=== PATIENT | male | born 1960 | race Caucasian/White ===

== ENCOUNTER → 2016-07-10 | Outpatient (CLI) | payer OTHER ==
[~2016-07-10] MED LIST: FLUT0.15 NAE; GABA-112 PO; GABA-113 PO; LISI-461 PO; MTR600X; MULT-506 PO; SIMV-151 PO
--- NOTE | 2016-07-10 16:06 | DIAGNOSTIC IMAGING REPORT ---
MRI LUMBAR SPINE W/O CONTRAST CLINICAL HISTORY: Low back pain with left leg radiculopathy. TECHNIQUE: Sagittal and axial T1, T2 and STIR images were obtained. COMPARISON STUDY: No previous studies for comparison. OBSERVATIONS: The vertebral bodies and posterior elements appear intact. There is no abnormal bony signal present to suggest a marrow replacement process. L1-2: No disc protrusions or extrusions. No evidence of spinal canal or neural foraminal compromise. L2-3: There is a minor circumferential disc bulge. There is no significant spinal or foraminal stenosis. L3-4: There is a minor circumferential disc bulge. There is no significant spinal or foraminal stenosis. L4-5: There is a small to moderate right paracentral disc protrusion. This deforms the right anterior aspect of the thecal sac. There is no significant foraminal stenosis. L5-S1: There is a small left paracentral disc protrusion. There is only minimal thecal sac deformity. There is no significant foraminal narrowing. The conus medullaris and cauda equina appear normal. IMPRESSION: 1. Smaller moderate right paracentral disc protrusion at the L4-5 level. 2. Small left paracentral disc protrusion at the L5-S1 level. Electronically signed by: Johan Portillo M.D. 07/10/2016 4:05 PM Dictated Date/Time: 07/10/2016 4:01 PM
== END | disposition home or self-care (01) ==
LOC: C.MRIBC 15:25
PROVIDERS: ATTEND Anesthesiology
DX: M51.16 Intervertebral disc disorders with radiculopathy, lumbar region (principal)

== ENCOUNTER 2022-06-21 08:28 | Inpatient (IN) ==
[2022-06-21] MEDS ORDERED: ONDANSETRON INJ 2 MG/ML 2 ML VIAL IV STA (08:54)
[2022-06-21] MEDS ORDERED: DEXAMETHASONE SOD INJ 4 MG/ML VIAL IV STA (08:54)
--- NOTE | 2022-06-21 08:59 | Emergency Department Note ---
History of Present Illness General Chief complaint: Back Injury/Pain Stated complaint: LOW BACK PAIN Time Seen by Provider: 06/21/22 08:33 History of Present Illness Maximum Pain Intensity: 10 This 61-year-old male presents today with his , for evaluation of excruciating low back pain. Patient was seen here 2 weeks ago for identical symptoms. MRI at that time showed a herniated L3-L4 disc with severe impingement on the neural foramen. He was discharged at that time with outpati ent follow-up. He has seen Dr. Delgado for evaluation of his spine. He was actually seen in the office yesterday. Patient states the pain is excruciating. He came to the ED today for pain control as well as hoping for admission. He denies any loss of bowel or bladder control. He states he cannot get comfortable. The pain radiates from his back to his anterior thigh. Right thigh is so painful he has difficulty bearing weight on it. He denies any loss of motor function. There is difficulty getting comfortable. No recent trauma. Symptoms started a month ago when he was sitting in chair and reached to the right side. He felt a pop and symptoms have worsened from there. Home Medications Medication Instructions Recorded Confirmed Type fluticasone propionate 50 2 sprays intranasal DAILY 02/15/18 06/21/22 History mcg/actuation nasal spray,suspension (Flonase Allergy Relief) multivitamin 1 tab PO DAILY 02/15/18 06/21/22 History ascorbic acid (vitamin C) 1,000 mg 1 g PO DAILY 10/08/21 06/21/22 History tablet atorvastatin 40 mg tablet 40 mg PO DAILY 10/08/21 06/21/22 History oxycodone 5 mg tablet 5 mg PO Q4 PRN pain #25 tabs 06/05/22 06/21/22 Rx celecoxib 200 mg capsule 200 mg PO BID 06/21/22 06/21/22 History lisinopril 5 mg tablet 5 mg PO DAILY 06/21/22 06/21/22 History ropinirole 2 mg tablet 2 mg PRN restless legs 06/21/22 History Allergies Allergy/AdvReac Type Severity Reaction Status Date / Time Anesthetics - Amide Type - AdvReac Agitated Unverified 06/21/22 10:11 Select A duloxetine AdvReac Verified 06/21/22 10:11 gabapentin AdvReac Depression Verified 06/21/22 10:11 Past Med/Surg History Medical History Cervical spondylosis High cholesterol Hypertension Lumbar facet joint syndrome Lumbar radiculopathy Myofascial pain Umbilical hernia Surgical History History of cervical spinal surgery C3-[address] Leal Family History Mother Stroke Hypertension Social History Smoking Status: Former smoker Tobacco Type: Cigarettes Hx Alcohol Use: Yes Alcohol type: beer Hx Substance Use: No Preferred Language: Kazakh Communication Ability: Effective Supervisor Harvesting Required: No Beliefs That Will Affect Care: None marital status: Current Living Situation: Spouse current occupational status: unemployed Other Information That Helps Us Care for You: No Feels Safe at Home: No Is there a partner from a previous relationship who is making you feel unsafe now?: No Any Concerns about Your Family Situation: No Would You Like to Speak to Someone About Your Situation: No Safety Concerns: Feels Safe At This Time Review of Systems A total of 10 systems reviewed and were otherwise negative Physical Exam Vital Signs Vital Signs - 24 hr 06/21/22 08:28 06/21/22 09:10 06/21/22 10:00 Temperature 36.6 C Temperature Source Temporal Artery Scan Pulse Rate 120 H Pulse Rate [Finger] 71 74 Pulse Rhythm [Finger] Regular Respiratory Rate 18 16 16 Respiratory Effort / Characteristics Non-Labored Spontaneous Non-Labored Non-Labored Respiratory Depth Normal Normal Normal Respiratory Pattern Regular Blood Pressure 170/106 H Blood Pressure [Left Arm] 146/73 H 140/74 Blood Pressure Mean 127 Blood Pressure Mean [Left Arm] 97 96 Blood Pressure Position Sitting Pulse Oximetry 99 96 94 Oxygen Delivery Method Room Air Room Air Room Air Sepsis Recent Fever Within 48 Hours No Sepsis New/Unexplained Change in Mental Status N/A Sepsis Action Taken by Nursing No Action Required General: Well-developed, well-nourished, middle-aged male, in obvious discomfort. He is writhing on the bed. Frequently tearful. Alert and oriented. Conversive. Skin: Warm and dry with good turgor. No rashes or lesions. No ecchymosis or erythema. Large tattoo present on his right calf. Musculoskeletal: Patient has focal pain with palpation over his lumbar spine. It is worst at the L3-L4 disc space. It extends into the paraspinal musculature into the into the buttocks. No pain with palpation over his thighs or calves. He has intact motor function of the hips, knees, ankles, and toes bilaterally. Strength is 5/5 for resisted flexion and extension of the hips, knees, and toes. Dorsiflexion and plantarflexion are intact for both ankles, with good strength bilaterally. Neurologic: Gross sensation is intact across both lower extremities by soft touch. DTRs are 1+ bilaterally at the knees. Peripheral pulses are 2+. Course Administered Medications Lactated Ringer's (Lr) 1,000 mls @ 75 mls/hr IV .[id number] [facility] Stop: 07/21/22 12:24 Last Admin: 06/21/22 13:41 Dose: 75 mls/hr Documented By: FILEMON Morphine Sulfate (Morphine Sulfate 4 Mg/Ml 1 Ml Carp\Vial) 4 mg IV Q1H PRN PRN Reason: Pain Stop: 07/05/22 08:53 Last Admin: 06/21/22 14:54 Dose: 4 mg Documented By: Admin: 06/21/22 10:45 Dose: 4 mg Documented By: Admin: 06/21/22 09:16 Dose: 4 mg Documented By: TEDDY Discontinued Medications Dexamethasone (Dexamethasone Sod Inj 4 Mg/Ml Vial) 10 mg IV NOW STA Stop: 06/21/22 08:55 Last Admin: 06/21/22 09:17 Dose: 10 mg Documented By: TDEDY Miscellaneous (Patient's Height &/Or Weight Needed) 1 each N/A Q2H LALA Stop: 07/21/22 12:44 Last Admin: 06/21/22 12:44 Dose: 1 each Documented By: FILEMON Ondansetron HCl (Ondansetron Inj 2 Mg/Ml 2 Ml Vial) 4 mg IV NOW STA Stop: 06/21/22 08:55 Last Admin: 06/21/22 09:16 Dose: 4 mg Documented By: TEDDY Medical Decision Making Differential Diagnosis Cauda equina syndrome, disc herniation, compression fracture, degenerative disc disease, foraminal stenosis, osteophyte formation, muscle strain Medical Records Attestation: I reviewed the patient's medical records. Home Medications Current Medication List: was personally reviewed by me Laboratory Data CBC and chemistry panel obtained today show a normal white count of 5.38. Mi ldly low H&H at 12.4 and 35.1. Renal function is normal. LFTs are normal. Glucose mildly elevated at 155, though this is not fasting. 06/21/22 09:12 06/21/22 09:12 Lab Results 06/21/22 06/21/22 Range/Units 09:12 09:12 WBC 5.38 (4.8-10.8) K/ul RBC 3.70 L (4.70-6.10) M/uL Hgb 12.4 L (14.0-18.0) g/dl Hct 35.1 L (42.0-52.0) % MCV 94.9 (80.0-100.0) fL MCH 33.5 (25.0-34.0) pg MCHC 35.3 (32.0-36.0) g/dL RDW Std Deviation 45.3 (36.4-46.3) fL RDW Coeff of Christopher 13.0 (11.5-14.5) % Plt Count 272 (130-400) K/uL MPV 9.0 L (9.4-12.4) fL Immature Gran % (Auto) 0.2 % Neut % (Auto) 69.9 % Lymph % (Auto) 17.8 % [place] % (Auto) 9.5 % Eos % (Auto) 2.2 % Baso % (Auto) 0.4 % Neut # (Auto) 3.76 (1.40-6.50) K/uL Lymph # (Auto) 0.96 L (1.2-3.4) K/uL [place] # (Auto) 0.51 (0.11-0.59) K/uL Eos # (Auto) 0.12 (0-0.50) K/uL Baso # (Auto) 0.02 (0-0.2) K/uL Immature Gran # (Auto) 0.01 (0.01-0.20) K/uL Sodium 135 L (136-145) mmol/L Potassium 4.0 (3.5-5.1) mmol/L Chloride 104 (98-107) mmol/L Carbon Dioxide 26 (21-32) mmol/L Anion Gap 5 (3-11) BUN 22 (6-23) mg/dl Creatinine 0.82 (0.6-1.4) mg/dl Est Cr Clr Drug Dosing Not Reportable Est GFR ( Amer) 110.6 ml/min Est GFR (Non-Af Amer) 95.4 ml/min BUN/Creatinine Ratio 26.8 H (10-20) Glucose 155 H (70-99(Fasting)) mg/dl Calcium 9.3 (8.5-10.1) mg/dl Total Bilirubin 1.0 (0.2-1.0) mg/dl Direct Bilirubin 0.2 (0-0.2) mg/dl AST 18 (13-39) U/L ALT 31 (7-52) U/L Alkaline Phosphatase 41 (34-104) U/L Total Protein 6.6 (6.0-8.3) gm/dl Albumin 4.3 (3.4-5.0) gm/dl Globulin 2.3 L (2.5-4.0) gm/dl Albumin/Globulin Ratio 1.9 (0.9-2) Imaging Data My Impression: Chest x-ray obtained today in anticipation of surgery, was interpreted by me and read by radiology. It is unremarkable. Fusion hardware is noted in the lower cervical spine. No active disease in the chest. Radiologist's Impression: Chest X-Ray 06/21/22 09:28 TWO VIEW CHEST CLINICAL HISTORY: Preoperative examination. FINDINGS: PA and lateral chest radiographs are correlated with chest CT dated 05/02/2009. The cardiomediastinal silhouette is unremarkable. The lungs and pleural spaces are clear. There is no pneumothorax. The bony thorax appears intact. Fusion hardware is noted in the lower cervical spine. IMPRESSION: No active disease in the chest. ACT 112: Negative or not required by law. Electronically signed by: Bassam Potts M.D. 06/21/2022 9:53 AM ECG Data Additional Comments: EKG obtained today was reviewed with Dr. Marshall. It shows normal sinus rhythm with a rate of 87. No ectopy or acute ST wave changes are noted. Blood Pressure Blood Pressure Findings: Elevated blood pressure Blood Pressure Disposition: elevated BP felt to be situational MDM Narrative Patient was evaluated in room A4. Conservative care measures were discussed. IV was established. Labs were obtained. They are unremarkable. Chest x-ray and EKG were also obtained in anticipation of surgical intervention later this week. Chest x-ray is unremarkable. EKG is normal with a rate of 87. He was given morphine 4 mg IV, Zofran 4 mg IV, and Decadron 10 mg IV. His pain improved significantly. He did require second dose of morphine 4 mg IV due to recurrent pain. I did speak with Dr. Delgado by telephone. He agreed that the patient was appropriate for admission. Please see his dictation for final management. COVID test was obtained and was negative. The patient remained stable while in the ED. Impression & Plan Lumbar disc herniation with radiculopathy Admission to Dr. Delgado from the orthopedic spine service. Anticipate surgical intervention this week. Continue IV pain medication as needed. Discharge Plan Visit Data Chief Complaint: Back Injury/Pain Stated Complaint: LOW BACK PAIN ED Provider: John Marshall ED Midlevel Provider: Rhett Quinn Discharge Problem: Lumbar disc herniation with radiculopathy Patient Disposition: Admitted As Inpatient Discharge Instructions Interventions: ED Discharge Assessment Last Done: 06/21/22 12:08
[2022-06-21] MEDS: MoRPHine SULFATE 4 MG/ML 1 ML CARP\\VIAL IV PRN ×4 (09:16→20:03)
[2022-06-21 09:40] LABS: Basophils # (auto) 0.02 K/uL (0-0.2); Basophils % (auto) 0.4 %; Eosinophils # (auto) 0.12 K/uL (0-0.50); Eosinophils % (auto) 2.2 %; Hematocrit (blood only) 35.1 % (42.0-52.0); Hemoglobin 12.4 g/dl (14.0-18.0); Immature Granulocytes # (auto) 0.01 K/uL (0.01-0.20); Immature Granulocytes % (auto) 0.2 %; Lymphocytes # (auto) 0.96 K/uL (1.2-3.4); Lymphocytes % (auto) 17.8 %; Mean Corpuscular Hemoglobin 33.5 pg (25.0-34.0); Mean Corpuscular Hgb Conc 35.3 g/dL (32.0-36.0); Mean Corpuscular Volume 94.9 fL (80.0-100.0); Monocytes # (auto) 0.51 K/uL (0.11-0.59); Monocytes % (auto) 9.5 %; Neutrophils # (auto) 3.76 K/uL (1.40-6.50); Neutrophils % (auto) 69.9 %; Platelet Count 272 K/uL (130-400); RDW Standard Deviation 45.3 fL (36.4-46.3); White Blood Count 5.38 K/ul (4.8-10.8)
[2022-06-21 09:52] LABS: Alanine Aminotransferase 31 U/L (7-52); Albumin Globulin Ratio 1.9 (0.9-2); Albumin Level 4.3 gm/dl (3.4-5.0); Alkaline Phosphatase 41 U/L (34-104); Anion Gap 5 (3-11); Aspartate Aminotransferase 18 U/L (13-39); BUN Creatinine Ratio 26.8 (10-20); Bilirubin Direct 0.2 mg/dl (0-0.2); Blood Urea Nitrogen 22 mg/dl (6-23); Calcium 9.3 mg/dl (8.5-10.1); Carbon Dioxide 26 mmol/L (21-32); Chloride 104 mmol/L (98-107); Est GFR (African American) 110.6 ml/min; Est GFR (Non-African American) 95.4 ml/min; Globulin 2.3 gm/dl (2.5-4.0); Glucose 155 mg/dl (70-99(Fasting)); Sodium 135 mmol/L (136-145); Total Protein 6.6 gm/dl (6.0-8.3)
--- NOTE | 2022-06-21 09:55 | XRay Report ---
TWO VIEW CHEST CLINICAL HISTORY: Preoperative examination. FINDINGS: PA and lateral chest radiographs are correlated with chest CT dated 05/02/2009. The cardiom ediastinal silhouette is unremarkable. The lungs and pleural spaces are clear. There is no pneumotho rax. The bony thorax appears intact. Fusion hardware is noted in the lower cervical spine. IMPRESSION: No active disease in the chest. ACT 112: Negative or not required by law. Electronically signed by: Bassam Potts M.D. 06/21/2022 9:53 AM
--- NOTE | 2022-06-21 11:11 | History & Physical Report ---
Date of Service June 21, 2022 Assessment & Plan (1) Lumbar disc herniation with radiculopathy: Plan: Assessment lumbar spinal stenosis with lumbar disc herniation and radiculopathy. Plan I reviewed the MRI with the patient and his . He has evidence of an acute disc herniation L3-L4 with a free fragment that is migrated cephalad as well as out through the foramen at L3-4 on the right consistent with his clinical presentation. He has a longstanding disc herniation at L4-5 also contributing to severe neural compression and stenosis. At this point he would require surgical intervention to relieve his symptoms and prevent further neurologic decline. He would require aggressive facetectomy to adequately and safely decompress the nerve roots and retrieve the disc fragments. This would contribute to iatrogenic instability and subsequently he would require fusion. We would address the L3-L4 and L4-5 level. Risk benefits pros cons alternatives were outlined in detail. Patient stands agrees. We will make him n.p.o. after midnight and plan for surgery soon as possible. History of Present Illness Chief Complaint: Right leg pain and weakness Primary Care Provider: Jose Michael MD This is a 61-year-old male who presents to the emergency room with steady decline in status severe right leg pain and inability to ambulate. I actually saw the patient yesterday in my clinic. He was in severe distress. He was noting pain in the right buttock extending down the right anterior thigh to the knee. He is markedly limiting with weightbearing and ambulation secondary to the pain and breakaway weakness. Left lower extremity is asymptomatic. He does have a history of back issues and is currently on disability for such. Prior to the recent events he was managed appropriately and effectively with epidural injections. The current symptoms are not responding to oral medications or injections. He is noting a steady decline in function. Allergies Allergy/AdvReac Type Severity Reaction Status Date / Time Anesthetics - Amide Type - AdvReac Agitated Unverified 06/21/22 10:11 Select A duloxetine AdvReac Verified 06/21/22 10:11 gabapentin AdvReac Depression Verified 06/21/22 10:11 Home Medications Medication Instructions Recorded Confirmed Type fluticasone propionate 50 2 sprays intranasal DAILY 02/15/18 06/21/22 History mcg/actuation nasal spray,suspension (Flonase Allergy Relief) lisinopril 10 mg tablet 10 mg PO DAILY 02/15/18 06/21/22 History multivitamin 1 tab PO DAILY 02/15/18 06/21/22 History ascorbic acid (vitamin C) 1,000 mg 1 g PO DAILY 10/08/21 06/21/22 History tablet atorvastatin 40 mg tablet 40 mg PO DAILY 10/08/21 06/21/22 History oxycodone 5 mg tablet 5 mg PO Q4 PRN pain #25 tabs 06/05/22 06/21/22 Rx celecoxib 200 mg capsule 200 mg PO BID 06/21/22 06/21/22 History Past Med/Surg History Medical History Cervical spondylosis High cholesterol Hypertension Lumbar facet joint syndrome Lumbar radiculopathy Myofascial pain Umbilical hernia Surgical History History of cervical spinal surgery C3-[address] Family History Mother Stroke Hypertension Social History Smoking Status: Former smoker Tobacco Type: Cigarettes Hx Alcohol Use: No Preferred Language: Nauruan marital status: Current Living Situation: Spouse current occupational status: unemployed Feels Safe at Home: Yes Physical Exam Physical Exam: On exam he is tearful secondary to pain. Standing ambulation is done so with extreme trepidation and antalgia. Bench exam reveals tension signs and for over 5 right quadriceps compared to 5 5 on the left. Plantarflexion dorsiflexion symmetric. Sensory diminished on the right. Deep tendon reflexes diminished. Results & Data Results & Data ([facility]) Vital Signs (Past 12 Hours) Vital Signs Temp Pulse Pulse Resp BP BP Pulse Ox 06/21/22 10:00 74 16 140/74 94 06/21/22 09:10 71 16 146/73 H 96 06/21/22 08:28 36.6 C 120 H 18 170/106 H 99 O2 Del Method 06/21/22 10:00 Room Air 06/21/22 09:10 Room Air 06/21/22 08:28 Room Air Code Status & VTE Plan VTE Prophylaxis Plan VTE Prophylaxis will be ordered: Yes
[2022-06-21] MEDS ORDERED: LORazepam 2 MG/1 ML VIAL IV PRN (12:25)
[2022-06-21] MEDS ORDERED: ACETAMINOPHEN 1,000 MG/100 ML VIAL IV PRN (12:25)
[2022-06-21] MEDS ORDERED: ACETAMINOPHEN 500 MG TAB PO PRN (12:25)
[2022-06-21] MEDS ORDERED: HYDROmorphone INJ 0.5 MG/0.5 ML SYR IV PRN (12:25)
[2022-06-21] MEDS ORDERED: NALOXONE HCL 0.4 MG/1 ML VIAL/CARP IV PRN (12:25)
[2022-06-21] MEDS ORDERED: PROMETHAZINE HCL 12.5 MG in SODIUM CHLORIDE 0.9% 50 ML IV PRN (12:25)
[2022-06-21] MEDS ORDERED: ONDANSETRON 4 MG OD TAB PO PRN (12:25)
[2022-06-21] MEDS ORDERED: METOCLOPRAMIDE HCL INJ 5 MG/ML 2 ML VIAL IV PRN (12:25)
[2022-06-21] MEDS ORDERED: oxyCODONE HCL IR 5 MG TAB (IMMEDIATE RELEASE) PO PRN (12:25)
[2022-06-21] MEDS ORDERED: ALUMINUM/MAGNESIUM SUSP 30 ML UDC PO PRN (12:25)
[2022-06-21] MEDS ORDERED: ONDANSETRON INJ 2 MG/ML 2 ML VIAL IV PRN (12:25)
[2022-06-21] MEDS ORDERED: traMADol HCL 50 MG TABLET PO PRN (12:25)
[2022-06-21] MEDS ORDERED: MAGNESIUM HYDROXIDE SUSP 30 ML UDC PO PRN (12:25)
[2022-06-21] MEDS ORDERED: Patient's HEIGHT &/or WEIGHT Needed SCH (12:45)
[2022-06-21] MEDS: LACTATED RINGER'S 1,000 ML IV SCH (13:41)
--- NOTE | 2022-06-21 14:08 | Consultation ---
Date of Consultation June 21, 2022 Assessment & Plan (1) Lumbar disc herniation with radiculopathy: (2) Hypertension: (3) High cholesterol: (4) History of cervical spinal surgery: Plan 61 y/o with plans for surgical interventino on 06/22 under the care of Dr. Dlegado s/p lumbar disc herniation with radiculopathy L3-L4; L4-L5. PMH HTN, HLD, RLS. Preop Hgb 12.4. Lumbar Disc Herniation with Radiculopathy: Plan for surgical intervention 06/22 under the care of Dr. delgado. Post-operative: Per ortho for pain control, wound care, anticoagulation and activities. Monitor H&H; pre operative Hgb 12.4; will trend, continue incentive spirometry post op PT/OT when appropriate HTN: -Takes Lisinopril; continue HLD: Takes Atorvastatin; continue History of cervical spine surgery: 2019 under the care of Dr. Leal Reports having a difficult time awakening from anesthesia with combativeness Disposition: PCP: Dr. Sheppard Code Status: Full Code VTE Prophylaxis: TEds/SCDs per admitting team A total of 28 minutes was spent with greater than 50% of that time personally reviewing all current laboratory work and diagnostic imaging studies obtained in the ED. Additionally, I was able to review the patients past medication reconciliation and history with direct visualization in the patients chart. Included in the time above, a portion of that time was spent assessing the patient while discussing and collaborating with specialists, if necessary, and making medical decisions regarding orders to be placed. All of the aforementioned completed while collaborating with Dr. Solis for a full treatment plan. Please see his addendum for further details. Supervising Physician Co-Signing Physician Notes Patient seen and examined 61 year old man with hypertension, lumbar radiculopathy who presents with worsening right buttock pain radiating to right thigh that is affecting weight bearing and ambulation Denied other complains Lumbar MRI from 06/04/22 showed Large L3-4 disc extrusion causign severe right lateral recess and right neural foraminal narrowing Planned for OR possibly tomorrow NPO PMN BP running high. Continue home lisinopril. Confirmed on PCP records, he is on Lisinopril 5mg daily Will continue to follow while inpatient Other plans as detailed by Michelle MERCEDES History of Present Illness Requesting Physician: Dr. Delgado Reason for Consultation: post-operative management consultation Attending Physician: Jonatan Delgado, DO History of Present Illness Mr. Haney is a 61 year old male that presents to the [facility] today after being seen by Dr. Delgado yesterday in outpatient clinic. He is quite a pleasant man who has been experiencing a steady decline with R leg pain and ambulation difficulties. He reports sciatic pain on his right bottom and to his right knee with difficulty with weight bearing, and numbness and tingling in high RLE. He has undergone cervical surgical intervention C3-C4 by Dr. Leal. Based on Dr. Delgado's examination and review of his MRI, plan for surgical intervention under the care of Dr. Delgado starting tomorrow 06/22. Patient is NPO after NM tonight. Additional PMH includes: HTN and HLD. Patient is jovial and sitting in his hospital bed in no apparent distress. He does state he is having 4/10 pain at rest. Up until now he had been seen by [facility] Pain management; Dr. Pace for steroid injections. Pt denies HOOD, dizziness, Chest pain, Palpitations, N /V/D, recent falls or trauma. He does report that with his cervical surgery, he had a difficult time awakening from anesthesia and was combative. Thank you kindly for involving the [facility] Hospitalist Service with this individual. We will follow accordingly post-operatively. Please feel free to reach out via [employer] with any questions 23/11. Please see A/P for further details. Allergies Allergy/AdvReac Type Severity Reaction Status Date / Time Anesthetics - Amide Type - AdvReac Agitated Unverified 06/21/22 10:11 Select A duloxetine AdvReac Verified 06/21/22 10:11 gabapentin AdvReac Depression Verified 06/21/22 10:11 Home Medications Medication Instructions Recorded Confirmed Type fluticasone propionate 50 2 sprays intranasal DAILY 02/15/18 06/21/22 History mcg/actuation nasal spray,suspension (Flonase Allergy Relief) multivitamin 1 tab PO DAILY 02/15/18 06/21/22 History ascorbic acid (vitamin C) 1,000 mg 1 g PO DAILY 10/08/21 06/21/22 History tablet atorvastatin 40 mg tablet 40 mg PO DAILY 10/08/21 06/21/22 History oxycodone 5 mg tablet 5 mg PO Q4 PRN pain #25 tabs 06/05/22 06/21/22 Rx celecoxib 200 mg capsule 200 mg PO BID 06/21/22 06/21/22 History lisinopril 5 mg tablet 5 mg PO DAILY 06/21/22 06/21/22 History ropinirole 2 mg tablet 2 mg PRN restless legs 06/21/22 History Patient History Medical History Cervical spondylosis High cholesterol Hypertension Lumbar facet joint syndrome Lumbar radiculopathy Myofascial pain Umbilical hernia Surgical History History of cervical spinal surgery C3-[address] Leal Family History Mother Stroke Hypertension Social History Smoking Status: Former smoker Tobacco Type: Cigarettes Hx Alcohol Use: Yes Alcohol type: beer Hx Substance Use: No Preferred Language: Icelandic Communication Ability: Effective Apple Press Operator Required: No Beliefs That Will Affect Care: None marital status: Current Living Situation: Spouse current occupational status: unemployed Other Information That Helps Us Care for You: No Feels Safe at Home: No Is there a partner from a previous relationship who is making you feel unsafe now?: No Any Concerns about Your Family Situation: No Would You Like to Speak to Someone About Your Situation: No Safety Concerns: Feels Safe At This Time Review of Systems Review of Systems: Neuro: (-) Falls, trauma, slurred speech HEENT: (-) HOOD, dizziness, dysphagia, visual or auditory changes CV: (-) CP, palpitations, swelling Resp: (-) SOB GI: (-) appetite changes, N/V/D, bowel changes : (-) urinary changes Skin: (-) rashes Psych: (-) anxiety, depression Physical Exam Physical Exam: Neuro: AAOx4, PERRLA, no aphagia, memory changes, CNII-XII grossly intact HEENT: head normocephalic, moist mucus membranes CV: S1/S2, (-) M/G/R, (-) edema, cap refill < 3 seconds Resp: Lungs CTA in all william. On RA GI: Abdomen S/NT/ND, Ax4 bowel sounds, (-) CVA tenderness Musculoskeletal: 5/5 B/L UE strength, 5/5 B/L LE strength. No gait disturbance Skin: (-) rashes , (-) erythema. Psych: euthymic mood Results & Data ([facility]) Vital Signs (Past 12 Hours) Vital Signs Temp Pulse Pulse Resp BP BP Pulse Ox 06/21/22 12:29 36.8 C 89 16 172/87 H 97 06/21/22 11:56 36.5 C 88 18 152/88 H 98 06/21/22 10:00 74 16 140/74 94 06/21/22 09:10 71 16 146/73 H 96 06/21/22 08:28 36.6 C 120 H 18 170/106 H 99 O2 Del Method 06/21/22 12:29 Room Air 06/21/22 11:56 Room Air 06/21/22 10:00 Room Air 06/21/22 09:10 Room Air 06/21/22 08:28 Room Air Laboratory Results Short CBC 06/21/22 Range/Units 09:12 WBC 5.38 (4.8-10.8) K/ul Hgb 12.4 L (14.0-18.0) g/dl Hct 35.1 L (42.0-52.0) % Plt Count 272 (130-400) K/uL BMP 06/21/22 09:12 Sodium 135 L Potassium 4.0 Chloride 104 Carbon Dioxide 26 BUN 22 Creatinine 0.82 Glucose 155 H Calcium 9.3 Liver Function 06/21/22 Range/Units 09:12 Total Bilirubin 1.0 (0.2-1.0) mg/dl Direct Bilirubin 0.2 (0-0.2) mg/dl AST 18 (13-39) U/L ALT 31 (7-52) U/L Alkaline Phosphatase 41 (34-104) U/L Albumin 4.3 (3.4-5.0) gm/dl Diagnostic Findings Chest X-Ray 06/21/22 09:28 TWO VIEW CHEST CLINICAL HISTORY: Preoperative examination. FINDINGS: PA and lateral chest radiographs are correlated with chest CT dated 05/02/2009. The cardiomediastinal silhouette is unremarkable. The lungs and pleural spaces are clear. There is no pneumothorax. The bony thorax appears intact. Fusion hardware is noted in the lower cervical spine. IMPRESSION: No active disease in the chest. ACT 112: Negative or not required by law. Electronically signed by: Bassam Potts M.D. 06/21/2022 9:53 AM
[2022-06-22] MEDS: MoRPHine SULFATE 4 MG/ML 1 ML CARP\\VIAL IV PRN ×5 (01:12→22:24)
[2022-06-22] MEDS: LACTATED RINGER'S 1,000 ML IV SCH ×2 (01:13→13:58)
[2022-06-22] MEDS ORDERED: rOPINIRole HCL 2 MG TABLET PO STA (03:24)
[2022-06-22] MEDS ORDERED: ceFAZolin 2000MG 2,000 MG/15 ML SYR IV SCH (06:00)
[2022-06-22 06:55] LABS: Hemoglobin 12.1 g/dl (14.0-18.0); Mean Corpuscular Hemoglobin 34.1 pg (25.0-34.0); Mean Corpuscular Hgb Conc 35.6 g/dL (32.0-36.0); Mean Corpuscular Volume 95.8 fL (80.0-100.0); Platelet Count 293 K/uL (130-400); RDW Coefficient of Variation 12.9 % (11.5-14.5); RDW Standard Deviation 45.4 fL (36.4-46.3); Red Blood Count 3.55 M/uL (4.70-6.10); White Blood Count 8.75 K/ul (4.8-10.8)
[2022-06-22 07:10] LABS: BUN Creatinine Ratio 23.6 (10-20); Calcium 9.4 mg/dl (8.5-10.1); Est GFR (Non-African American) 92.3 ml/min; Potassium 4.3 mmol/L (3.5-5.1)
[2022-06-22] MEDS: lisinopril 5 MG TAB PO SCH (07:40)
[2022-06-22] MEDS: ATORVASTATIN 40 MG TAB PO SCH (07:41)
[2022-06-22] MEDS: FLUTICASONE PROPIONATE NA SPR 16 GM BTL SCH (07:41)
[2022-06-22] MEDS ORDERED: lisinopril 10 MG TAB PO SCH (09:00)
--- NOTE | 2022-06-22 09:23 | Electrocardiogram Report ---
Test Reason : Blood Pressure : / mmHG Vent. Rate : 098 BPM Atrial Rate : 098 BPM P-R Int : 154 ms QRS Dur : 096 ms QT Int : 348 ms P-R-T Axes : 072 067 068 degrees QTc Int : 444 ms Normal sinus rhythm Normal ECG When compared with ECG of 21-JUN-2022 09:10, (unconfirmed) No significant change was found Confirmed by Michel Solitario ([id number]) on 06/22/2022 9:23:26 AM Referred By: REFERRED SELF Confirmed By:Jatinder Solitario
[2022-06-22] MEDS: SENNA 8.6 MG TAB PO SCH (14:37)
--- NOTE | 2022-06-22 15:18 | Hospitalist Progress Note ---
Date of Service June 22, 2022 Assessment & Plan (1) Lumbar disc herniation with radiculopathy: (2) Hypertension: (3) High cholesterol: (4) History of cervical spinal surgery: Plan 61 y/o with plans for surgical interventino on 06/22 under the care of Dr. Delgado s/p lumbar disc herniation with radiculopathy L3-L4; L4-L5. PMH HTN, HLD, RLS. Preop Hgb 12.4. Lumbar Disc Herniation with Radiculopathy: Plan for OR tomorrow for L3-4, L4-5 decompression and fusion Will follow up post op tomorrow Pain control Hypertension: Continue home lisinopril Hyperlipidemia: Continue home atorvastatin History of cervical spine surgery: 2019 under the care of Dr. Leal Reports having a difficult time awakening from anesthesia with combativeness Disposition: PCP: Dr. Sheppard Code Status: Full Code VTE Prophylaxis: TEds/SCDs Admission and Anticipated Discharge Date Admission Date: June 21, 2022 Subjective Patient seen and examined Reports right buttock pain radiating to right anterior thigh Affects his ambulation Denied any headache, dizziness Denied cough, chest pain, shortness of breath Denied dysuria, freq, urgency Denied nausea, vomiting, abd pain, diarrhea Physical Exam Constitutional: + well hydrated; no acute distress Eyes: PERRL, conjunctivae normal, anicteric sclerae ENMT: external ear and nose normal, oropharynx normal Respiratory: normal respiratory effort, lungs clear to auscultation Cardiovascular: Rate/Rhythm: regular rate and regular rhythm S1 S2 Gastrointestinal (Abdomen): normal bowel sounds, soft, nontender, no hepatosplenomegaly Musculoskeletal: No pedal edema Neurologic: PERRL, EOMI, accommodation nl, no face palsy, no dysarthria Psychiatric: A+Ox3, euthymic affect Results & Data Results & Data ([facility]) Vital Signs (Past 12 Hours) Vital Signs Temp Pulse Pulse Resp BP Pulse Ox O2 Del Method 06/22/22 14:38 36.9 C 80 16 156/84 H 99 Room Air 06/22/22 08:01 36.8 C 82 17 148/83 H 98 Room Air Laboratory Results Abnormal lab results 06/22/22 06/22/22 06/22/22 Range/Units 05:59 05:59 16:00 RBC 3.55 L (4.70-6.10) M/uL Hgb 12.1 L (14.0-18.0) g/dl Hct 34.0 L (42.0-52.0) % MCH 34.1 H (25.0-34.0) pg MPV 9.0 L (9.4-12.4) fL BUN/Creatinine Ratio 23.6 H (10-20) Glucose 122 H (70-99(Fasting)) mg/dl Crossmatch See Detail
--- NOTE | 2022-06-22 17:12 | Electrocardiogram Report ---
Test Reason : Blood Pressure : / mmHG Vent. Rate : 083 BPM Atrial Rate : 083 BPM P-R Int : 152 ms QRS Dur : 098 ms QT Int : 376 ms P-R-T Axes : 077 070 075 degrees QTc Int : 441 ms Normal sinus rhythm Normal ECG When compared with ECG of 04-JUN-2022 16:09, No significant change was found Confirmed by Michel Solitario ([id number]) on 06/22/2022 5:11:49 PM Referred By: REFERRED SELF Confirmed By:Jatinder Solitario
--- NOTE | 2022-06-22 19:28 | Anesthesiology Consultation ---
Date of Service June 22, 2022 Assessment & Plan Chart Review Chart Review: Acceptable Risk for Surgery and Patient NOT seen in Pre Admission Testing Consults Requested none History Surgery Operation Date: 06/23/22 12:25 Proposed Procedures p L3-L4, L4-L5 Decompression and Fusion, Spinal Cord Monitoring - Jonatan Delgado DO Height/Weight Height: 6 ft 1 in Weight: 101.2 kg Allergies Allergy/AdvReac Type Severity Reaction Status Date / Time Anesthetics - Amide Type - AdvReac Agitated Unverified 06/21/22 10:11 Select A duloxetine AdvReac Verified 06/21/22 10:11 gabapentin AdvReac Depression Verified 06/21/22 10:11 Medications Home Medications Medication Instructions Recorded Confirmed Last Taken fluticasone propionate 50 2 sprays intranasal DAILY 02/15/18 06/21/22 Unknown mcg/actuation nasal spray,suspension (Flonase Allergy Relief) multivitamin 1 tab PO DAILY 02/15/18 06/21/22 Unknown ascorbic acid (vitamin C) 1,000 mg 1 g PO DAILY 10/08/21 06/21/22 Unknown tablet atorvastatin 40 mg tablet 40 mg PO DAILY 10/08/21 06/21/22 Unknown oxycodone 5 mg tablet 5 mg PO Q4 PRN pain #25 tabs 06/05/22 06/21/22 Unknown celecoxib 200 mg capsule 200 mg PO BID 06/21/22 06/21/22 Unknown lisinopril 5 mg tablet 5 mg PO DAILY 06/21/22 06/21/22 Unknown ropinirole 2 mg tablet 2 mg PRN restless legs 06/21/22 Unknown Active Medications Generic Name Dose Route Start Last Admin Trade Name Carter PRN Reason Stop Dose Admin Atorvastatin Calcium 40 mg 06/22/22 09:00 06/22/22 07:41 Atorvastatin 40 Mg Tab PO 07/22/22 08:59 40 mg DAILY LALA Administration Fluticasone Propionate 2 sprays 06/22/22 09:00 06/22/22 07:41 Fluticasone Propionate Na Spr 16 Gm Btl NA 07/22/22 08:59 2 sprays DAILY LALA Administration Hydromorphone HCl 0.5 mg 06/21/22 12:25 06/22/22 10:28 Hydromorphone Inj 0.5 Mg/0.5 Ml Syr IV 07/05/22 12:24 0.5 mg Q3H PRN Administration MOD pain (scale 4-6) & Pre PT Lactated Ringer's 1,000 mls @ 75 mls/hr 06/21/22 12:25 06/22/22 13:58 Lr IV 07/21/22 12:24 75 mls/hr .[id number] LALA Administration Lisinopril 5 mg 06/22/22 09:00 06/22/22 07:40 Lisinopril 5 Mg Tab PO 07/22/22 08:59 5 mg DAILY LALA Administration Morphine Sulfate 4 mg 06/21/22 08:54 06/22/22 18:26 Morphine Sulfate 4 Mg/Ml 1 Ml Carp\Vial IV 07/05/22 08:53 4 mg Q1H PRN Administration Pain Sennosides 17.2 mg 06/22/22 13:45 06/22/22 14:37 Senna 8.6 Mg Tab PO 07/22/22 13:44 17.2 mg QAM LALA Administration NPO Date Last Intake of Fluids: 06/22/22 Time Last Intake of Fluids: 23:59 Date Last Intake of Solids: 06/22/22 Time Last Intake of Solids: 23:59 Last Intake of Solids Comment: NPO P MN advised Past Medical History Medical History (Updated 06/22/22 @ 19:27 by Malaika Carlson DO) Annular tear of lumbar disc L4-5 Cervical spondylosis High cholesterol Hypertension Lumbar disc herniation with radiculopathy Lumbar facet joint syndrome Lumbar radiculopathy Myofascial pain Umbilical hernia Exercise / Class Metabolic Activity II 4-5 Yardwork/Stairs/Walk up hill Past Family History Family History Mother Stroke Hypertension Past Surgical History Surgical History History of cervical spinal surgery C3-[address] Leal Past Anesthesia History No Hx of Anesthesia Complications and No Family Hx of Anesthesia Complications History of PONV No Hx of PONV and No Hx of Motion Sickness Social History Smoking Status: Former smoker tobacco type: smokeless tobacco Hx Alcohol Use: Yes Alcohol type: beer alcohol intake frequency: holidays/special occasions only Hx Substance Use: No substance use type: does not use Physical Exam Vital Signs Last Vital Signs Temp 36.9 C 06/22/22 14:38 Pulse 80 06/22/22 14:38 Resp 16 06/22/22 14:38 BP 156/84 H 06/22/22 14:38 Pulse Ox 99 06/22/22 14:38 O2 Del Method Room Air 06/22/22 14:38 Testing Laboratory Results 06/22/22 05:59 06/22/22 05:59 Blood Type AB Positive 06/22/22 15:31 Antibody Screen NEGATIVE 06/22/22 15:31 Electrocardiogram Date: 06/21/22 Findings: + NSR @ (98) Chest X-Ray Date: 06/21/22 Findings: + NAD
[2022-06-22] MEDS: rOPINIRole HCL 2 MG TABLET PO PRN (22:24)
[2022-06-23] MEDS: LACTATED RINGER'S 1,000 ML IV SCH ×3 (02:46→23:20)
[2022-06-23] MEDS: MoRPHine SULFATE 4 MG/ML 1 ML CARP\\VIAL IV PRN ×2 (02:47→06:31)
[2022-06-23] MEDS: lisinopril 5 MG TAB PO SCH (07:31)
[2022-06-23] MEDS: SENNA 8.6 MG TAB PO SCH (07:32)
[2022-06-23] MEDS: ATORVASTATIN 40 MG TAB PO SCH (07:33)
[2022-06-23] MEDS: FLUTICASONE PROPIONATE NA SPR 16 GM BTL SCH (07:33)
--- NOTE | 2022-06-23 07:41 | History & Physical Bridge Note ---
Date of Service June 23, 2022 History & Physical Bridge Note I have examined the patient, reviewed the History & Physical and in the interval since the performance of the History & Physical I have noted the following changes of clinical significance: Patient continues to note severe right leg pain with inability to ambulate. He has quad deficit. It is progressive in nature. In light of the severity of his neural compression and progressive neuro deficit recommending emergent decompression and fusion to prevent irreversible neurologic damage. It would require a lumbar decompression and fusion L3-L4 L4-L5.
[2022-06-23] MEDS ORDERED: PROPOFOL IV EMULSION 10 MG/ML 20 ML VIAL IV ONE (07:49)
[2022-06-23] MEDS ORDERED: MIDAZOLAM HCL 1 MG/ML 2ML VIAL ONE (07:49)
[2022-06-23] MEDS ORDERED: DEXAMETHASONE SOD INJ 4 MG/ML VIAL ONE (07:49)
[2022-06-23] MEDS ORDERED: fentaNYL citrate 100 MCG/2 ML VIAL ONE (07:49)
[2022-06-23] MEDS ORDERED: ONDANSETRON INJ 2 MG/ML 2 ML VIAL ONE (07:49)
[2022-06-23] MEDS ORDERED: LIDOCAINE 2% MPF LOCAL 5 ML VIAL INFIL ONE (07:49)
[2022-06-23] MEDS ORDERED: ROCURONIUM BROMIDE 10 MG/ML 5 ML VIAL IV ONE ×2 (07:49→09:17)
[2022-06-23] MEDS ORDERED: BUPIVACAINE/EPINEPHRINE 0.25% 1:200,000 30 ML VIAL ONE (07:55)
[2022-06-23] MEDS ORDERED: ceFAZolin 330 MG/ML 1 GM VIAL ONE (07:56)
[2022-06-23] MEDS ORDERED: DexMEDEtomidine HCL IV 100 MCG/ML VIAL IV ONE (08:37)
[2022-06-23] MEDS ORDERED: ePHEDrine sulfate 50 MG/ML AMP IV PRN (08:45)
[2022-06-23] MEDS ORDERED: ATROPINE SULFATE 0.1 MG/ML 10ML SYR IV PRN (08:45)
[2022-06-23] MEDS ORDERED: PROMETHAZINE HCL 6.25 MG in SODIUM CHLORIDE 0.9% 50 ML IV PRN (08:45)
[2022-06-23] MEDS ORDERED: ONDANSETRON INJ 2 MG/ML 2 ML VIAL IV PRN ×2 (08:45→12:02)
[2022-06-23] MEDS ORDERED: fentaNYL citrate 100 MCG/2 ML VIAL IV PRN (08:45)
[2022-06-23] MEDS ORDERED: KETAMINE 50 MG/5 ML SYRINGE ONE (08:51)
[2022-06-23] MEDS ORDERED: SUCCINYLCHOLINE 100MG/5ML SYR IV ONE (09:17)
[2022-06-23] MEDS ORDERED: PHENYLEPHRINE HCL 10 MG/ML VIAL ONE (09:23)
[2022-06-23] MEDS ORDERED: HYDROmorphone INJ 2 MG/ML SYR/VIAL ONE (09:57)
[2022-06-23] MEDS ORDERED: NEOSTIGMINE METHYLSULFATE 1 MG/ML 10ML VIAL ONE (10:36)
[2022-06-23] MEDS ORDERED: GLYCOPYRROLATE 0.2 MG/ML VIAL ONE (10:36)
[2022-06-23] MEDS ORDERED: VASOPRESSIN 20 UNIT/ML VIAL ONE (10:37)
[2022-06-23] MEDS ORDERED: FLOSEAL HEMOSTATIC MATRIX 10ML TOP ONE (10:38)
--- NOTE | 2022-06-23 10:48 | Operative Report ---
Post Operative Report Pre & Post Diagnosis Operation Date: 06/23/22 12:25 Pre-Op Diagnosis: Lumbar disc herniation with radiculopathy Post-Op Diagnosis: Lumbar disc herniation with radiculopathy I identified the patient and participated in the time-out.: Yes Procedure Operation Date: 06/23/22 12:25 Actual Procedures #1 lumbar decompression bilaterally facetectomies and foraminotomies L3-L4 L4- L5. #2 posterior spinal fusion L3-L4 L4-5. #3 placement posterior instrumentation L3-L5. #4 interbody fusion L3-L4 L4-L5 #5 placement of Spira 15 x 26 mm at L3-4 and 14 x 26 mm at L4-5. #6 placement locally harvested morselized autograft in the posterior gutters. #7 placement of I factor bone of the talus in the interbody space and posterior lateral gutters. Surgeon Jonatan Delgado, Millwork Estimator Gina Braun Estimated Blood Loss 100 Findings Consistent with Post-Op Diagnosis Specimens None Indications This is a 61-year-old male who presents with spinal stenosis and acute disc herniation with progressive neurologic decline is undergoing emergent decompression and fusion to his whole to the progressive neuro deficit and avoid permanent damage. Description of Procedure Patient met with identified informed consent obtained. Patient was then taken to the operative suite underwent a patient placed in a prone position the Jex table top Fabian frame. All bony promises well-padded eyes inspected to ensure no external pressure placed upon the. This point the lumbar spine was prepped and draped in normal sterile fashion. Sharp dissection with the assistance of Bovie cautery was performed down to and exposing the lamina and transverse processes of L3 L4-5 bilaterally. From caudal to cephalad fashion complete laminectomy of L4 and L3 was performed including bilateral medial facetectomies and foraminotomies as well as addressing a disc herniation at L4-5 and extending out of the foramen. There is also massive free fragment of disc material at L3- L4 that migrated cephalad causing compression of the exiting root. After complete decompression and removal of disc fragments pedicle screws were placed at L3 L4-5 bilaterally with assistance of fluoroscopy and appropriate sized melisa placed. By way of a transfemoral approach and right complete discectomy of L4-5 was performed endplates curetted to subcortically bone and a 14 x 26 mm spiral cage with I factor tapped in position. Then proceeded to L3-L4 and again by way of a transforaminal approach and right complete discectomy performed endplates curetted to subcortically bone and a 15 x 26 mm spiral cage with I factor tapped in position. The rods then compressed locked in final position bilaterally. The transverse processes of L3 L4-5 burred to subcortically bone. I factor bone of the test and locally harvested morselized graft was placed in the posterior gutters. 15 round ERIC drain inserted. The incision was then closed with 1 Vicryl the fascia 2-0 Vicryl subcutaneously and 4 Monocryl for final skin closure. Steri-Strips dressings placed. Patient awakened taken to PACU in stable condition. Please note spinal cord monitoring was utilized at the procedure no changes noted. Lastly Gina Braun was present at the entire surgeon while the patient positioning complex portions of the surgery and final skin closure. I attest to the content of the Intraoperative Record and any orders documented therein. Any exceptions are noted below.
--- NOTE | 2022-06-23 11:08 | Fluoroscopy Report ---
INTRAOPERATIVE RADIOGRAPHS CLINICAL HISTORY: Lumbar spinal fusion. Fluoro time: 25 seconds. Exposure: 18.64 mGy FINDINGS: 2 spot fluoroscopic views of the lumbar spine are presented. There has been discectomy at L 3-L4 and L4-L5 with laminectomy and posterior fusion at L3-L5. Interpedicular screws are present at a ll levels. The orthopedic hardware appears intact. IMPRESSION: Intraoperative images from lumbar spinal fusion surgery as above. Electronically signed by: Bassam Potts M.D. 06/23/2022 11:07 AM
[2022-06-23] MEDS ORDERED: ACETAMINOPHEN 500 MG TAB PO PRN (12:02)
[2022-06-23] MEDS ORDERED: FAMOTIDINE 20 MG TAB PO PRN (12:02)
[2022-06-23] MEDS ORDERED: METOCLOPRAMIDE HCL INJ 5 MG/ML 2 ML VIAL IV PRN (12:02)
[2022-06-23] MEDS ORDERED: NALOXONE HCL 0.4 MG/1 ML VIAL/CARP IV PRN (12:02)
[2022-06-23] MEDS ORDERED: LORazepam 0.5 MG TAB PO PRN (12:02)
[2022-06-23] MEDS ORDERED: traMADol HCL 50 MG TABLET PO PRN (12:02)
[2022-06-23] MEDS ORDERED: DO NOT ADMINISTER PNEUMOCOCCAL VACCINE PRN (12:02)
[2022-06-23] MEDS ORDERED: MAGNESIUM HYDROXIDE SUSP 30 ML UDC PO PRN (12:02)
[2022-06-23] MEDS ORDERED: PROMETHAZINE HCL 12.5 MG in SODIUM CHLORIDE 0.9% 50 ML IV PRN (12:02)
[2022-06-23] MEDS ORDERED: diphenhydrAMINE Capsule 25 MG CAP PO PRN (12:02)
[2022-06-23] MEDS ORDERED: ALUMINUM/MAGNESIUM SUSP 30 ML UDC PO PRN (12:02)
[2022-06-23] MEDS ORDERED: DO NOT ADMINISTER FLU VACCINE PRN (12:02)
[2022-06-23] MEDS ORDERED: LORazepam 2 MG/1 ML VIAL IV PRN (12:02)
[2022-06-23] MEDS ORDERED: ONDANSETRON 4 MG OD TAB PO PRN (12:02)
[2022-06-23] MEDS ORDERED: bisacodyL 10 MG SUPP PR PRN (12:02)
[2022-06-23] MEDS ORDERED: SOD PHOSPHATE/SOD BIPHOSPHATE ENEMA 132 ML BTL PR PRN (12:02)
[2022-06-23] MEDS ORDERED: ACETAMINOPHEN 1,000 MG/100 ML VIAL IV PRN (12:02)
[2022-06-23] MEDS ORDERED: hydrOXYzine HCl 25 MG TAB PO PRN (12:02)
--- NOTE | 2022-06-23 12:02 | Anesthesiology Progress Note ---
Date of Service June 23, 2022 Anesthesia Post Procedure Vital Signs Vital Signs: Temp Pulse Pulse Resp BP BP Pulse Ox 06/23/22 11:40 73 18 104/66 100 06/23/22 11:30 36.6 C 74 16 114/64 100 06/23/22 11:20 71 14 99/57 L 100 06/23/22 11:10 79 14 96/59 L 98 06/23/22 11:01 36.4 C L 96 H 16 104/73 96 06/23/22 08:15 36.8 C 89 20 163/94 H 99 06/23/22 07:31 36.7 C 74 16 148/87 H 99 06/22/22 21:05 36.8 C 81 16 149/81 H 95 06/22/22 14:38 36.9 C 80 16 156/84 H 99 O2 Del Method O2 Flow Rate 06/23/22 11:40 Nasal Cannula 2 06/23/22 11:30 Nasal Cannula 2 06/23/22 11:20 Nasal Cannula 2 06/23/22 11:10 Nasal Cannula 2 06/23/22 11:01 Nasal Cannula 2 06/23/22 08:15 Room Air 06/23/22 07:31 Room Air 06/22/22 21:05 Room Air 06/22/22 14:38 Room Air Pain Intensity Back: Pain Intensity: 3 Transfer of Care Handoff Completed per policy Notes Mental Status: alert / awake / arousable Patient Amnestic to Procedure: Yes Nausea / Vomiting: adequately controlled Pain: adequately controlled Airway Patency, RR, SpO2: stable & adequate BP & HR: stable & adequate Hydration State: stable & adequate Anesthetic Complications: no major complications apparent
--- NOTE | 2022-06-23 12:34 | Hospitalist Progress Note ---
Date of Service June 23, 2022 Assessment & Plan (1) Lumbar disc herniation with radiculopathy: (2) Hypertension: (3) High cholesterol: (4) History of cervical spinal surgery: Plan 61 y/o with plans for surgical interventino on 06/22 under the care of Dr. Delgado s/p lumbar disc herniation with radiculopathy L3-L4; L4-L5. PMH HTN, HLD, RLS. Preop Hgb 12.4. Lumbar Disc Herniation with Radiculopathy: S/P L3-4, L4-5 decompression and fusion today Pain control per Surgeon Check CBC and BMP in AM Hypertension: Continue home lisinopril Hyperlipidemia: Continue home atorvastatin History of cervical spine surgery: 2019 under the care of Dr. Leal Reports having a difficult time awakening from anesthesia with combativeness Disposition: PCP: Dr. Sheppard Code Status: Full Code VTE Prophylaxis: TEds/SCDs Admission and Anticipated Discharge Date Admission Date: June 21, 2022 Subjective Patient seen and examined on return from OR Was drowsy but arousable Reports only mild pain at surgical site Reports dry mouth and some nausea Denied any headache, dizziness Denied cough, chest pain, shortness of breath Denied vomiting, abd pain Physical Exam Constitutional: + well hydrated; no acute distress Eyes: PERRL, conjunctivae normal, anicteric sclerae ENMT: external ear and nose normal, oropharynx normal Respiratory: normal respiratory effort, lungs clear to auscultation Cardiovascular: Rate/Rhythm: regular rate and regular rhythm S1 S2 Gastrointestinal (Abdomen): normal bowel sounds, soft, nontender, no hepatosplenomegaly Musculoskeletal: Dressing over surgical site. Drain in situ Neurologic: PERRL, EOMI, accommodation nl, no face palsy, no dysarthria Results & Data Results & Data ([facility]) Vital Signs (Past 12 Hours) Vital Signs Temp Pulse Pulse Pulse Resp BP BP 06/23/22 12:28 36.5 C 79 18 116/73 06/23/22 12:04 36.8 C 80 16 115/71 06/23/22 11:40 73 18 104/66 06/23/22 11:30 36.6 C 74 16 114/64 06/23/22 11:20 71 14 99/57 L 06/23/22 11:10 79 14 96/59 L 06/23/22 11:01 36.4 C L 96 H 16 104/73 06/23/22 08:15 36.8 C 89 20 163/94 H 06/23/22 07:31 36.7 C 74 16 148/87 H Pulse Ox O2 Del Method O2 Flow Rate 06/23/22 12:28 96 Room Air 06/23/22 12:04 99 Room Air 06/23/22 11:40 100 Nasal Cannula 2 06/23/22 11:30 100 Nasal Cannula 2 06/23/22 11:20 100 Nasal Cannula 2 06/23/22 11:10 98 Nasal Cannula 2 06/23/22 11:01 96 Nasal Cannula 2 06/23/22 08:15 99 Room Air 06/23/22 07:31 99 Room Air
[2022-06-23] MEDS: ceFAZolin 2000MG 2,000 MG/15 ML SYR IV SCH (17:36)
[2022-06-23] MEDS: HYDROmorphone INJ 0.5 MG/0.5 ML SYR IV PRN (17:46)
[2022-06-23] MEDS: DOCUSATE SODIUM/SENNA 50/8.6MG TAB PO SCH (20:58)
[2022-06-23] MEDS: rOPINIRole HCL 2 MG TABLET PO PRN (20:58)
[2022-06-24] MEDS: ceFAZolin 2000MG 2,000 MG/15 ML SYR IV SCH (00:16)
[2022-06-24] MEDS: HYDROmorphone INJ 0.5 MG/0.5 ML SYR IV PRN (03:54)
[2022-06-24] MEDS: POLYETHYLENE (MIRALAX) 17 GM PACK PO SCH ×3 (05:46→18:27)
[2022-06-24] MEDS: LACTATED RINGER'S 1,000 ML IV SCH (05:53)
[2022-06-24 07:00] LABS: Basophils # (auto) 0.02 K/uL (0-0.2); Basophils % (auto) 0.2 %; Eosinophils # (auto) 0.02 K/uL (0-0.50); Eosinophils % (auto) 0.2 %; Hematocrit (blood only) 28.5 % (42.0-52.0); Hemoglobin 10.1 g/dl (14.0-18.0); Immature Granulocytes # (auto) 0.04 K/uL (0.01-0.20); Immature Granulocytes % (auto) 0.4 %; Lymphocytes % (auto) 12.6 %; Mean Corpuscular Hemoglobin 34.2 pg (25.0-34.0); Mean Corpuscular Hgb Conc 35.4 g/dL (32.0-36.0); Mean Corpuscular Volume 96.6 fL (80.0-100.0); Mean Platelet Volume 9.3 fL (9.4-12.4); Monocytes # (auto) 0.95 K/uL (0.11-0.59); Monocytes % (auto) 8.6 %; Neutrophils # (auto) 8.65 K/uL (1.40-6.50); Platelet Count 270 K/uL (130-400); RDW Standard Deviation 46.3 fL (36.4-46.3); Red Blood Count 2.95 M/uL (4.70-6.10); White Blood Count 11.08 K/ul (4.8-10.8)
[2022-06-24 07:18] LABS: Calcium 9.1 mg/dl (8.5-10.1); Creatinine Clr Calc Pharmacy 121.3 ml/min; Est GFR (African American) 111.7 ml/min; Est GFR (Non-African American) 96.4 ml/min
--- NOTE | 2022-06-24 08:30 | Orthopedic Progress Note ---
Date of Service June 24, 2022 Assessment & Plan (1) Lumbar disc herniation with radiculopathy: Plan: Power is postoperative day 1 status post posterior lumbar decompression instrumented fusion L3-5. He is doing well. We will start physical therapy today. Continue with pain control. DVT prophylaxis is in the form of teds and SCDs. Maintain ERIC drain. Anticipate discharge home in within the next 24 to 48 hours. Admission and Anticipated Discharge Date Admission Date: June 21, 2022 Subjective Power is postoperative day 1 status post posterior lumbar decompression instrumented fusion L3-[address] Delgado. He has had an uneventful evening. Radicular leg pain has resolved. Back pain is controlled. ERIC drain output last shift is 130 cc. H&H this morning are 10.1 and 28.5. Overall very pleased and doing well. Review of Systems Review of Systems: All systems reviewed & are unremarkable except as noted in HPI & below Physical Exam Physical Exam: He is lying in bed in no acute distress Alert and oriented x3 Lumbar dressing is clean dry intact with functioning ERIC drain Calf soft nontender bilaterally SOCORRO hose and SCDs intact bilaterally Strength intact bilateral lower extremities Results & Data ([facility]) Vital Signs (Past 12 Hours) Vital Signs Temp Pulse Resp BP Pulse Ox O2 Del Method 06/24/22 08:08 36.8 C 94 H 18 110/72 95 Room Air 06/24/22 03:25 36.9 C 91 H 18 128/86 95 Room Air 06/23/22 22:56 37.0 C 96 H 18 115/62 95 Room Air
[2022-06-24] MEDS: FLUTICASONE PROPIONATE NA SPR 16 GM BTL SCH (08:58)
[2022-06-24] MEDS: dexAMETHasone 6 MG in SYRINGE 0 ML IV SCH (08:58)
[2022-06-24] MEDS: ATORVASTATIN 40 MG TAB PO SCH (09:00)
[2022-06-24] MEDS: lisinopril 5 MG TAB PO SCH (09:00)
[2022-06-24] MEDS: oxyCODONE HCL IR 5 MG TAB (IMMEDIATE RELEASE) PO PRN ×2 (09:03→21:12)
[2022-06-24] MEDS ORDERED: rOPINIRole HCL 0.25 MG TABLET PO ONE (12:22)
--- NOTE | 2022-06-24 12:47 | Hospitalist Progress Note ---
Date of Service June 24, 2022 Assessment & Plan (1) Lumbar disc herniation with radiculopathy: (2) Post-operative state: (3) Hypertension: (4) High cholesterol: (5) History of cervical spinal surgery: (6) RLS (restless legs syndrome): Plan 61 y/o with plans for surgical interventino on 06/22 under the care of Dr. Delgado s/p lumbar disc herniation with radiculopathy L3-L4; L4-L5. PMH HTN, HLD, RLS. Preop Hgb 12.4. Lumbar Disc Herniation with Radiculopathy: POD #1, S/P L3-4, L4-5 decompression and fusion Pain control per Dr. Delgado Continues on decadron Hypertension: chronic, controlled. Continue home lisinopril Hyperlipidemia: chronic, stable. Continue home atorvastatin History of cervical spine surgery: 2019 under the care of Dr. Leal Reports having a difficult time awakening from anesthesia with combativeness No issues today. RLS- all meds were reviewed and confirmed again today. He reports using 2mg qHS of Requip as needed Now having some new RLS symptoms in his right leg. Additional requip 0.5mg being given now for symptom control. If this is persistent, will need to follow-up with PCP for investigative workup into cause/reversible issues. Disposition: PCP: Dr. Sheppard Code Status: Full Code VTE Prophylaxis: TEds/SCDs/ambulation Stacie Bernard DO [facility] Hospitalist Admission and Anticipated Discharge Date Admission Date: June 21, 2022 Subjective 61 yo M s/p lumbar spine surgery yesterday. Medicine team following him for medical management. He is reporting a RLS feeling in his right leg post op which typically only bothers him at night. He is otherwise reporting pain well controlled and no BM yet No issues with urination and no LE tingling. He ambulated today. Review of Systems Review of Systems: All systems were reviewed and negative except as indicated in HPI above. Physical Exam Physical Exam: CONSTITUTIONAL: WNWD, vitals as above, generally well-appearing, NAD EYES: normal conjunctivae, no scleral icterus ENT: external ear and nose normal, NECK: trachea midline, RESPIRATORY: clear to auscultation bilaterally, no crackles, rales or wheezes, normal respiratory effort CARDIOVASCULAR: regular rate and rhythm, S1 and 2 heard without murmurs, gallops or rubs, no JVD, no peripheral edema, CHEST: inspection of chest was normal GASTROINTESTINAL: soft, nontender, Nd, no guarding MUSCULOSKELETAL: strength 5/5 throughout, head is normocephalic and atraumatic, +ERIC drain in place with bloody fluid. SKIN: warm and dry, lumbar incision covered with dressing that is c/d/i NEUROLOGIC: CN 2-12 grossly intact, no sensory deficit, normal cognition, normal speech, no tremor PSYCHIATRIC: alert cooperative and oriented to person, place and time. Euthymic mood, makes good eye contact, language grossly intact, recent and remot e memory grossly intact. Results & Data Results & Data ([facility]) Vital Signs (Past 12 Hours) Vital Signs Temp Pulse Resp BP Pulse Ox O2 Del Method 06/24/22 08:08 36.8 C 94 H 18 110/72 95 Room Air 06/24/22 03:25 36.9 C 91 H 18 128/86 95 Room Air Laboratory Results Short CBC 06/24/22 Range/Units 05:53 WBC 11.08 H (4.8-10.8) K/ul Hgb 10.1 L (14.0-18.0) g/dl Hct 28.5 L (42.0-52.0) % Plt Count 270 (130-400) K/uL BMP 06/24/22 05:53 Sodium 138 Potassium 4.0 Chloride 103 Carbon Dioxide 31 BUN 16 Creatinine 0.80 Glucose 125 H Calcium 9.1 Medications Administered Current Inpatient Medications Acetaminophen (Acetaminophen 500 Mg Tab) 1,000 mg PO Q8H PRN PRN Reason: MILD Pain Scale 1,2,3 & Pre PT Stop: 07/23/22 12:01 Al Hydrox/Mg Hydrox/Simethicone (Aluminum/Magnesium Susp 30 Ml Udc) 30 ml PO Q6H PRN PRN Reason: Dyspepsia Stop: 07/23/22 12:01 Atorvastatin Calcium (Atorvastatin 40 Mg Tab) 40 mg PO DAILY LALA Stop: 07/22/22 08:59 Last Admin: 06/24/22 09:00 Dose: 40 mg Bisacodyl (Bisacodyl 10 Mg Supp) 10 mg [place] DAILY PRN PRN Reason: Constipation Stop: 07/23/22 12:01 Diphenhydramine HCl (Diphenhydramine Capsule 25 Mg Cap) 25 mg PO Q6H PRN PRN Reason: Allergic Rhinitis/Insomnia Stop: 07/23/22 12:01 Famotidine (Famotidine 20 Mg Tab) 20 mg PO Q12H PRN PRN Reason: Dyspepsia Stop: 07/23/22 12:01 Fluticasone Propionate (Fluticasone Propionate Na Spr 16 Gm Btl) 2 sprays NA DAILY LALA Stop: 07/22/22 08:59 Last Admin: 06/24/22 08:58 Dose: Not Given Hydromorphone HCl (Hydromorphone Inj 0.5 Mg/0.5 Ml Syr) 0.5 mg IV Q3H PRN PRN Reason: MODERATE Pain (Scale 4,5,6) & Pre PT Stop: 07/07/22 12:01 Last Admin: 06/24/22 03:54 Dose: 0.5 mg Hydroxyzine HCl (Hydroxyzine Hcl 25 Mg Tab) 25 mg PO Q8H PRN PRN Reason: Anxiety Stop: 07/23/22 12:01 Dexamethasone 6 mg/ Syringe 1.5 mls @ 1 mls/min IV DAILY [facility] Stop: 06/26/22 09:02 Last Admin: 06/24/22 08:58 Dose: 1 mls/min Promethazine HCl 12.5 mg/ (Sodium Chloride) 50.5 mls @ 202 mls/hr IV Q6H PRN PRN Reason: Nausea &/or Vomiting Stop: 07/23/22 12:01 Influenza Virus Vaccine Quadrival (Do Not Administer Flu Vaccine) 1 each N/A PRN PRN PRN Reason: Notification Stop: 07/23/22 12:01 Lisinopril (Lisinopril 5 Mg Tab) 5 mg PO DAILY [facility] Stop: 07/22/22 08:59 Last Admin: 06/24/22 09:00 Dose: 5 mg Lorazepam (Lorazepam 2 Mg/1 Ml Vial) 0.5 mg IV Q8H PRN PRN Reason: Sedation/Anxiety Stop: 07/23/22 12:01 Lorazepam (Lorazepam 0.5 Mg Tab) 0.5 mg PO Q8H PRN PRN Reason: Sedation/Anxiety Stop: 07/23/22 12:01 Magnesium Hydroxide (Magnesium Hydroxide Susp 30 Ml Udc) 30 ml PO Q24H PRN PRN Reason: Constipation Stop: 07/23/22 12:01 Metoclopramide HCl (Metoclopramide Hcl Inj 5 Mg/Ml 2 Ml Vial) 10 mg IV Q6H PRN PRN Reason: Nausea &/or Vomiting Stop: 07/23/22 12:01 Naloxone HCl (Naloxone Hcl 0.4 Mg/1 Ml Vial/Carp) 0.1 mg IV Q5M PRN PRN Reason: Oversedation/Resp depression Stop: 07/23/22 12:01 Ondansetron HCl (Ondansetron 4 Mg Od Tab) 4 mg PO Q6H PRN PRN Reason: Nausea Stop: 07/23/22 12:01 Last Admin: 06/24/22 04:05 Dose: 4 mg Ondansetron HCl (Ondansetron Inj 2 Mg/Ml 2 Ml Vial) 4 mg IV Q6H PRN PRN Reason: Nausea &/or Vomiting Stop: 07/23/22 12:01 Oxycodone HCl (Oxycodone Hcl Ir 5 Mg Tab (Immediate Release)) 5 - 10 mg PO Q4H PRN PRN Reason: Pain & Pre PT Stop: 07/07/22 12:01 Last Admin: 06/24/22 09:03 Dose: 5 mg Pneumococcal Polyvalent Vaccine (Do Not Administer Pneumococcal Vaccine) 1 each N/A PRN PRN PRN Reason: Notification Stop: 07/23/22 12:01 Polyethylene Glycol (Polyethylene (Miralax) 17 Gm Pack) 17 gm PO Q6 LALA Stop: 07/24/22 05:59 Last Admin: 06/24/22 05:46 Dose: 17 gm Ropinirole HCl (Ropinirole Hcl 2 Mg Tablet) 2 mg PO HS PRN PRN Reason: restless legs Stop: 07/23/22 20:59 Last Admin: 06/23/22 20:58 Dose: 2 mg Senna/Docusate Sodium (Docusate Sodium/Senna 50/8.6mg Tab) 2 tab PO HS LALA Stop: 07/23/22 20:59 Last Admin: 06/23/22 20:58 Dose: 2 tab Sodium Biphosphate/Sodium Phosphate (Sod Phosphate/Sod Biphosphate Enema 132 Ml Btl) 132 ml [place] ONE PRN PRN Reason: Constipation Stop: 07/23/22 12:01 Tramadol HCl (Tramadol Hcl 50 Mg Tablet) 50 - 100 mg PO Q4H PRN PRN Reason: Moderate-Severe pain & Pre PT Stop: 07/23/22 12:01
[2022-06-24] MEDS: DOCUSATE SODIUM/SENNA 50/8.6MG TAB PO SCH (21:40)
[2022-06-24] MEDS: rOPINIRole HCL 2 MG TABLET PO PRN (21:40)
[2022-06-25] MEDS: oxyCODONE HCL IR 5 MG TAB (IMMEDIATE RELEASE) PO PRN ×3 (03:45→12:35)
[2022-06-25] MEDS: POLYETHYLENE (MIRALAX) 17 GM PACK PO SCH ×3 (03:45→12:09)
[2022-06-25] MEDS: ATORVASTATIN 40 MG TAB PO SCH (08:15)
[2022-06-25] MEDS: dexAMETHasone 6 MG in SYRINGE 0 ML IV SCH (08:16)
[2022-06-25] MEDS: FLUTICASONE PROPIONATE NA SPR 16 GM BTL SCH (08:16)
[2022-06-25] MEDS: lisinopril 5 MG TAB PO SCH (08:17)
--- NOTE | 2022-06-25 08:26 | Discharge Summary ---
Date of Service June 25, 2022 Admission HPI Per Admitting Provider This is a 61-year-old male who presents to the emergency room with steady decline in status severe right leg pain and inability to ambulate. I actually saw the patient yesterday in my clinic. He was in severe distress. He was noting pain in the right buttock extending down the right anterior thigh to the knee. He is markedly limiting with weightbearing and ambulation secondary to the pain and breakaway weakness. Left lower extremity is asymptomatic. He does have a history of back issues and is currently on disability for such. Prior to the recent events he was managed appropriately and effectively with epidural injections. The current symptoms are not responding to oral medications or injections. He is noting a steady decline in function. Principal Diagnosis Lumbar disc herniation with radiculopathy and progressive neuro deficit Discharge Data Allergies Allergy/AdvReac Type Severity Reaction Status Date / Time Anesthetics - Amide Type - AdvReac Intermediate Agitated Verified 06/23/22 08:14 Select A gabapentin AdvReac Intermediate Depression Verified 06/23/22 08:12 duloxetine AdvReac Verified 06/23/22 08:14 Consultations 06/21/22 10:18 ED Decision to Admit Stat 06/21/22 12:25 Consult Internal Medicine Routine Procedures Performed Operation Date: 06/23/22 12:25 Actual Procedures p L3-L4, L4-L5 Decompression and Fusion, Spinal Cord Monitoring(Not Applicable) - Jonatan Delgado, Ordered Studies 06/23/22 [place] lumbar spine 2-3V Routine Hospital Course (1) Lumbar disc herniation with radiculopathy: Patient presents with marked decline in neurologic status and inability to ambulate underwent emergent decompression fusion. He tolerated this well was taken to orthopedic for postoperative. Postop day #1 is up and ambulating progressed to postop day #2. Excellent strength testing. ERIC drain decreasing appropriately. Subsequent discharge home. Discharge orders instructions from the chart for further review. Total Time Total Time Spent Total Time Spent (In Minutes): 20 minutes Discharge Plan Discharge Items Patient Disposition: Home - Self-Care Reason For Visit: LUMBAR DISK HERNIATION Discharge Diagnosis: Lumbar disc herniation with radiculopathy Activity: As commented below Non-emergency contact: Primary Care Provider Call non-emergency contact if: you have any medication questions Follow-up/Referrals: Jose Michael MD [Primary Care Provider] - Diet: Regular Addtl Attending Provider Instructions: ACTIVITY RECOMMENDATIONS: SELF CARE INSTRUCTIONS AFTER THORACIC/LUMBAR FUSIONS 1. You may walk to your tolerance. It is good exercise for your legs and back. Expect some back and intermittent leg aches and pains. 2. You may perform "counter-top" level activities (make a sandwich, adolfo with a project, etc.). 3. No bending or lifting of more than 10 pounds or back twisting of any nature (roll like a log when turning in bed). 4. You may ride in a car for 20-30 minutes at a time. No driving until after your first visit with your doctor. 5. Frequent changes of position and restricting sitting to 30 minutes at a time will help limit the amount of back spasms and stiffness you may experience. 6. You may discontinue the use of ambulatory aids (cane, crutches, etc.) once your strength and confidence allow. 7. You may signal maintenance technician the shower and let water strike your incision when you arrive home at least once daily. Do not take a tub bath, sit in a hot tub or go into a swimming pool until after your first recheck in the office. SPECIAL CARE INSTRUCTIONS: VERY IMPORTANT TO READ AND REVIEW A. Your surgical incision has been closed with a cosmetic suture under the skin that will dissolve in about 6 weeks. In 14 days, you can use a pair of clean scissors and cut the suture that is left outside of the skin at the ends of your incision. 1. The small skin tapes can be removed 7 days after surgery if they have not fallen off by that point. 2. You may keep the wound open to air as much as possible to promote healing after post-op day number 5 unless told otherwise by your doctor. 3. If you think the wound looks like it is becoming infected (redness or worsening drainage) and/or you are experiencing fever, chill or worsening back pain and muscle spasms, contact the office so that we may evaluate you as soon as possible. B. Complications are uncommon, but please contact us if you have any signs or symptoms of: 1. wound infection (fever higher than 102.5 degrees F, redness, separation of wound, drainage, or increasing pain from the incision) 2. blood clots in legs (pain, swelling, redness and warmth in legs) 3. urinary tract infection (fever higher than 102.5 degrees F, burning upon urination or increased frequency of urination) 4. nerve problems (inability to walk on your toes or heels, numbness, loss of bowel or bladder control) 5. any other symptoms that concern you C. Please call the office at if you have any concerns or questions about your operation or recovery. D. No smoking! Smoking drastically decreases the chance of a solid fusion. E. Do not take any anti-inflammatory medications (Indocin, Advil, Motrin, Aspirin, Naprosyn, etc.) as these may inhibit the chance of a solid fusion. Tylenol is okay to take for pain. MANAGING PAIN AFTER SPINAL SURGERY 1. Narcotic medication is intended for short-term use and will be provided for surgical pain. Surgical pain usually lasts for a period of 4-6 weeks. Narcotic medication includes Percocet, Vicodin, Darvocet, Tylenol #3 or Lortab. 2. Longer-term pain is more appropriately treated with non-narcotic medication such as Tylenol ES. 3. Muscle spasm is not appropriately treated with narcotics. Muscle relaxers such as Soma, Flexeril or Skelaxin can be used along with Tylenol ES. 4. Remember that we all live with some "aches and pains". This is not unusual or uncommon after an injury or as we get older. a. Back pain is expected and may include muscle spasms for 4 to 6 weeks after surgery. The pain should gradually improve. If the pain worsens for no apparent reason, please contact the office. b. Intermittent leg pain may also be experienced and should not be concerned about unless it worsens for no apparent reason. If so, please contact the office. 5. We will provide appropriate medication within the normal guidelines of their prescribed use. We will also be very cautious and aware of potential abuse and extended duration of patients' medication needs. a. Pain medications are for your comfort and to assist with sleep and rest so that the tissue can heal. They are not provided in order to return to normal activity and should not be used through the day. To do so or worsening pain at night can result from ongoing tissue damage and development of tolerance to the prescribed medicine. 6. Please allow 2-3 days to process refills. Prescriptions will not be mailed but must be picked up at the office. FOLLOW UP VISIT: Keep your scheduled follow-up appointment. Any questions, please call the office at . Pending Studies at Discharge: No Stand-Alone Forms: [facility], Smoking Cessation Medications and DC Order Prescriptions: New tramadol 50 mg tablet 50 mg PO Q6H PRN (Reason: pain, moderate) Qty: 30 0RF oxycodone 5 mg tablet 5 mg PO Q6H PRN (Reason: pain, severe) Qty: 30 0RF Continued multivitamin tablet 1 tab PO DAILY atorvastatin 40 mg tablet 40 mg PO DAILY ascorbic acid (vitamin C) 1,000 mg tablet 1 g PO DAILY ropinirole 2 mg tablet 2 mg HS PRN (Reason: restless legs) lisinopril 5 mg tablet 5 mg PO DAILY Discharge Orders: Discharge Order (Routine); Ordered 06/25/22 Ordered By: Jonatan Delgado Admission Data Admit Date/Time: 06/21/22 10:16 Attending Provider: Jonatan Delgado Admit Provider: Jonatan Delgado Primary Care Provider: Jose Michael Other Providers: Jonatan Delgado ; Stacie Bernard
[2022-06-25 09:09] LABS: Hematocrit (blood only) 28.1 % (42.0-52.0); Hemoglobin 9.9 g/dl (14.0-18.0); Mean Corpuscular Hemoglobin 33.6 pg (25.0-34.0); Mean Corpuscular Hgb Conc 35.2 g/dL (32.0-36.0); Mean Corpuscular Volume 95.3 fL (80.0-100.0); Mean Platelet Volume 9.1 fL (9.4-12.4); Platelet Count 237 K/uL (130-400); RDW Coefficient of Variation 12.9 % (11.5-14.5); RDW Standard Deviation 44.9 fL (36.4-46.3); Red Blood Count 2.95 M/uL (4.70-6.10)
== END 2022-06-25 12:45 | disposition home or self-care (01) | DRG 454 ==
LOC: ED 08:28 → 3E 10:16